=== PATIENT | female | born 1990 | race Caucasian/White ===

== ENCOUNTER 2019-08-22 10:04 | Day surgery (SDC) | payer MEDICAID ==
[~2019-08-22] VITALS: Ht 165.1 cm; Wt 65.4 kg
[~2019-08-22 10:04] MED LIST: CARCD120C PO; DOCUMENT DATE & TIME OF BETA-BLOCKER PO ONE; IBUP-24 PO; METO-539 PO; clindamycin-Cleocin 900mg/D5W 50 ML IV ONE; famotidine 20mg tablet PO ONE; ringers solution, lacted 1,000 ML IV SCH
[2019-08-22 10:20] VITALS: BP 112/65
[2019-08-22 11:42] LABS: BASOPHILS # (AUTO) 0.1 X10'3 (0-0.2); BASOPHILS % (AUTO) 1.2 % (0-1); EOSINOPHILS # (AUTO) 0.2 X10'3 (0-0.9); EOSINOPHILS % (AUTO) 4.7 % (0-6); LYMPHOCYTES # (AUTO) 1.1 X10'3 (1.1-4.8); LYMPHOCYTES % (AUTO) 24.7 % (21-51); MEAN CORPUSCULAR HEMOGLOBIN 31.1 PG (27.0-31.0); MEAN CORPUSCULAR HGB CONC 34.1 g/dL (33.0-36.5); MEAN CORPUSCULAR VOLUME 91.3 FL (78-98); MEAN PLATELET VOLUME 8.3 FL (7.4-10.4); MONOCYTES # (AUTO) 0.6 X10'3 (0-0.9); MONOCYTES % (AUTO) 13.4 % (2-12); NEUTROPHILS # (AUTO) 2.5 X10'3 (1.8-7.7); PRE OP HEMATOCRIT 42.9 % (35.0-45.0); PRE OP HEMOGLOBIN 14.6 g/dL (12.0-16.0); PRE OP PLATELET COUNT 290 X10'3 (140-440)
[2019-08-22 11:56] LABS: ALANINE AMINOTRANSFERASE 22 U/L (12-78); ALBUMIN 4.1 G/DL (3.4-5.0); ALBUMIN/GLOBULIN RATIO 1.2 (1.1-1.5); ALKALINE PHOSPHATASE 68 IU/L (46-116); ANION GAP 12 (8-16); ASPARTATE AMINO TRANSFERASE 13 U/L (10-37); BILIRUBIN,TOTAL 0.5 MG/DL (0.1-1.0); BLOOD UREA NITROGEN 13 MG/DL (7-18); BUN/CREATININE RATIO 18.1 (6.6-38.0); CALCIUM 8.6 MG/DL (8.5-10.1); CHLORIDE 103 MMOL/L (99-107); CREATININE 0.72 MG/DL (0.40-0.90); GLUCOSE 94 MG/DL (70-104); POTASSIUM 4.4 MMOL/L (3.5-5.1); SODIUM 140 MMOL/L (135-145); TOTAL CARBON DIOXIDE 25.4 MMOL/L (24-32); TOTAL PROTEIN 7.6 G/DL (6.4-8.2); eGFR > 90 ML/MIN
[2019-08-22] MEDS ORDERED: LIDOcaine 1% 30ml preserv. free vial ONE (12:03)
[2019-08-22] MEDS ORDERED: ceFAZolin 1000mg inj ONE (12:03)
[2019-08-22] MEDS ORDERED: propofol 10mg/ml 20ml vial IV ONE (13:00)
[2019-08-22] MEDS ORDERED: fentaNYL/PF 50MCG/1 ML 2ML syringe ONE (13:09)
[2019-08-22] MEDS ORDERED: midazolam 2 mg/2 ml injection ONE (13:11)
[2019-08-22] MEDS ORDERED: ringers solution, lacted 1,000 ML IV SCH (13:22)
[2019-08-22] MEDS ORDERED: morphine 4 MG/ML inj SYRINge IV PRN ×2 (13:25)
[2019-08-22] MEDS ORDERED: labetalol 20mg/4ml (5mg/ml) syringe IV PRN (13:25)
[2019-08-22] MEDS ORDERED: ondansetron/PF 4mg/2ml inj IV PRN (13:25)
[2019-08-22] MEDS ORDERED: fentaNYL/PF 50MCG/1 ML 2ML syringe IV PRN ×2 (13:25)
[2019-08-22] MEDS ORDERED: hydrALAZINE 20mg/ml inj. IV PRN (13:25)
[2019-08-22 13:35] VITALS: BP 121/63
[2019-08-22 13:45] VITALS: BP 107/70
[2019-08-22 13:55] VITALS: BP 111/69
[2019-08-22 14:05] VITALS: BP 122/69
[2019-08-22 14:15] VITALS: BP 100/58
--- NOTE | 2019-08-22 14:35 | NUR ---
ADMITTED TO PACU FROM OR ACCOMPANIED BY ANESTHESIA. INTIAL PHYSICAL ASSESSMENT DONE AND RECORDED. AWAKE AND RESPONSE ON ARRIVE YO PACU, REPORT RECEIVED FROM ANESTHESIA.
--- NOTE | 2019-08-22 14:35 | NUR ---
Discharge criteria met, discharge instructions given, demonstrates verbal understanding. Discharged home in good condition.
== END 2019-08-22 14:35 | disposition home or self-care (01) ==
LOC: PAS 10:04
PROVIDERS: ATTEND Surgery
DX: Z45.09 Encounter for adjustment and management of other cardiac device (principal); Z88.8 Allergy status to other drugs, medicaments and biological substances; Z91.040 Latex allergy status; Z88.1 Allergy status to other antibiotic agents; Z98.890 Other specified postprocedural states; Z79.899 Other long term (current) drug therapy
CPT/HCPCS: 33286; 36415; 80053; 85025; J0690; J2001; J2250; J2704; J3010; A4215; A6258; A7000; J3490; J7120

== ENCOUNTER 2020-06-23 17:25 | Emergency (ER) | payer MEDICAID ==
[~2020-06-23] VITALS: Ht 165.1 cm; Wt 62.0 kg
[~2020-06-23 17:25] MED LIST changes: -DOCUMENT DATE & TIME OF BETA-BLOCKER PO ONE; -clindamycin-Cleocin 900mg/D5W 50 ML IV ONE; -famotidine 20mg tablet PO ONE; -ringers solution, lacted 1,000 ML IV SCH
[2020-06-23 18:16] LABS: BASOPHILS # (AUTO) 0.1 X10'3 (0-0.2); BASOPHILS % (AUTO) 1.2 % (0-1); EOSINOPHILS # (AUTO) 0.1 X10'3 (0-0.9); EOSINOPHILS % (AUTO) 2.9 % (0-6); HEMATOCRIT 39.5 % (35.0-45.0); HEMOGLOBIN 13.5 g/dl (12.0-16.0); LYMPHOCYTES # (AUTO) 1.3 X10'3 (1.1-4.8); LYMPHOCYTES % (AUTO) 25.9 % (21-51); MEAN CORPUSCULAR HGB CONC 34.3 g/dL (33.0-36.5); MEAN CORPUSCULAR VOLUME 93.3 FL (78-98); MEAN PLATELET VOLUME 8.4 FL (7.4-10.4); MONOCYTES # (AUTO) 0.5 X10'3 (0-0.9); MONOCYTES % (AUTO) 9.9 % (2-12); NEUTROPHILS % (AUTO) 60.1 % (42-75); PLATELET COUNT 280 X10'3 (140-440); RED BLOOD COUNT 4.23 X10'6 (4.20-5.60); RED CELL DISTRIBUTION WIDTH 13.5 % (11.5-14.5)
[2020-06-23] MEDS ORDERED: AMIO200T61 PO (18:33)
[2020-06-23 18:47] LABS: ALANINE AMINOTRANSFERASE 18 U/L (12-78); ALBUMIN 3.7 G/DL (3.4-5.0); ALBUMIN/GLOBULIN RATIO 1.2 (1.1-1.5); ALKALINE PHOSPHATASE 52 IU/L (46-116); ANION GAP 4 (8-16); ASPARTATE AMINO TRANSFERASE 12 U/L (10-37); BILIRUBIN,TOTAL 0.5 MG/DL (0.1-1.0); BLOOD UREA NITROGEN 11 MG/DL (7-18); BUN/CREATININE RATIO 11.3 (6.6-38.0); CALCIUM 8.6 MG/DL (8.5-10.1); CHLORIDE 108 MMOL/L (99-107); CREATININE 0.97 MG/DL (0.40-0.90); GLUCOSE 101 MG/DL (70-104); POTASSIUM 3.9 MMOL/L (3.5-5.1); SODIUM 139 MMOL/L (135-145); TOTAL CARBON DIOXIDE 27.3 MMOL/L (24-32); TOTAL PROTEIN 6.9 G/DL (6.4-8.2); eGFR 67 ML/MIN
[2020-06-23] MEDS ORDERED: ketorolac tromethamine 15mg/ml inj. IV ONE (19:15)
[2020-06-23] MEDS ORDERED: ketorolac trometh. 30mg/ml inj. IM ONE (19:30)
[2020-06-23 20:52] VITALS: BP 124/99
== END 2020-06-23 20:54 | disposition home or self-care (01) ==
LOC: ER 17:26
DX: R07.89 Other chest pain (principal); R06.02 Shortness of breath; Z88.8 Allergy status to other drugs, medicaments and biological substances; Z88.1 Allergy status to other antibiotic agents; Z91.040 Latex allergy status; Z79.899 Other long term (current) drug therapy
CPT/HCPCS: 36415; 71046; 80053; 83880; 84484; 85025; 93005; 96372; 99285; J1885

== ENCOUNTER 2021-07-15 09:52 | Inpatient (IN) | payer MEDICAID ==
[2021-07-09 15:46] LABS: BASOPHILS # (AUTO) 0.1 X10'3 (0-0.2); EOSINOPHILS # (AUTO) 0.1 X10'3 (0-0.9); EOSINOPHILS % (AUTO) 2.2 % (0-6); LYMPHOCYTES # (AUTO) 1.4 X10'3 (1.1-4.8); LYMPHOCYTES % (AUTO) 25.9 % (21-51); MEAN CORPUSCULAR HEMOGLOBIN 31.2 PG (27.0-31.0); MEAN CORPUSCULAR HGB CONC 33.3 g/dL (33.0-36.5); MEAN CORPUSCULAR VOLUME 93.6 FL (78-98); MEAN PLATELET VOLUME 8.8 FL (7.4-10.4); MONOCYTES # (AUTO) 0.7 X10'3 (0-0.9); MONOCYTES % (AUTO) 12.2 % (2-12); NEUTROPHILS # (AUTO) 3.2 X10'3 (1.8-7.7); NEUTROPHILS % (AUTO) 58.7 % (42-75); PRE OP HEMATOCRIT 42.7 % (35.0-45.0); PRE OP HEMOGLOBIN 14.2 g/dL (12.0-16.0); PRE OP PLATELET COUNT 292 X10'3 (140-440); RED BLOOD COUNT 4.56 X10'6 (4.20-5.60); RED CELL DISTRIBUTION WIDTH 13.4 % (11.5-14.5)
[2021-07-09 16:13] LABS: ALBUMIN 4.2 G/DL (3.4-5.0); ALBUMIN/GLOBULIN RATIO 1.3 (1.1-1.5); ALKALINE PHOSPHATASE 65 IU/L (46-116); BLOOD UREA NITROGEN 14 MG/DL (7-18); BUN/CREATININE RATIO 14.9 (6.6-38.0); CHLORIDE 108 MMOL/L (99-107); CREATININE 0.94 MG/DL (0.40-0.90); PRE OP ALT 26 U/L (30-65); PRE OP ANION GAP 11 (8-16); PRE OP AST 19 U/L (10-37); PRE OP BILIRUB, TOTAL 0.3 MG/DL (0.0-1.0); PRE OP GLUCOSE 83 MG/DL (70-104); PRE OP POTASSIUM 4.2 MMOL/L (3.4-5.1); PRE OP SODIUM 145 MMOL/L (135-145); TOTAL CARBON DIOXIDE 26.2 MMOL/L (24-32); TOTAL PROTEIN 7.5 G/DL (6.4-8.2); eGFR 69 ML/MIN
[2021-07-15] VITALS (13 sets, daily range): BP systolic 99–127; BP diastolic 55–80
[~2021-07-15] VITALS: Ht 165.1 cm; Wt 67.1 kg
[~2021-07-15 09:52] MED LIST changes: +AMIO200T61 PO; -CARCD120C PO; +DOCUMENT DATE & TIME OF BETA-BLOCKER PO ONE; +FLUD0.1T PO; +MESSAGE TO NURSING IV ONE; +VANCOMYCIN INJ 1000 MG in NORMAL SALINE 250ml IV.SOLN IV ONE; +famotidine 20mg tablet PO ONE; +ringers solution, lacted 1,000 ML IV SCH; +tranexamic acid 650mg tablet PO ONE
[2021-07-15] MEDS ORDERED: CLINDAmcin 900mg/NS 50ml IVPB 50 ML IV ONE (10:45)
[2021-07-15] MEDS ORDERED: diphenhydrAMINE 50 mg/ml inj IV ONE (12:00)
--- NOTE | 2021-07-15 12:00 | NUR ---
PT REPORTS HEAD IS ITCHY AND HEAD IS RED WITH NO WELTS. VANCOMYCIN STOPPED, DR BURCIAGA CALLED, TELEPHONE ORDER GIVEN FOR 25MG BENADRYL IV PUSH, ONE TIME.
[2021-07-15] MEDS ORDERED: ROPIVAcaine 0.5% (5mg/ml) 30ml vial ONE (13:33)
[2021-07-15] MEDS ORDERED: ketorolac trometh. 30mg/ml inj. ONE (13:33)
[2021-07-15] MEDS ORDERED: fentaNYL/PF 50MCG/1 ML 2ML syringe ONE (13:45)
[2021-07-15] MEDS ORDERED: propofol inj 20 ML IV ONE (13:45)
[2021-07-15] MEDS ORDERED: midazolam 1 mg/ML 2ml injection ONE ×2 (13:45)
[2021-07-15] MEDS ORDERED: meperidine/PF 25mg/ml syringe IV PRN ×3 (13:50)
[2021-07-15] MEDS ORDERED: ROPIVAcaine 0.2%/PF PUMP/bolus 545 ML INTERSCALE SCH (13:50)
[2021-07-15] MEDS ORDERED: morphine 4 MG/ML inj SYRINge IV PRN (13:50)
[2021-07-15] MEDS ORDERED: ROPIVAcaine 0.2% (10 MG/5 ML) BOLUS INJECTION INTERSCALE PRN (13:50)
[2021-07-15] MEDS ORDERED: ondansetron/PF 4mg/2ml inj IV PRN (13:50)
[2021-07-15] MEDS ORDERED: proCHLORperazine 10 MG/2 ml inj IV PRN (13:50)
[2021-07-15] MEDS ORDERED: ringers solution, lacted 1,000 ML IV SCH (13:50)
[2021-07-15] MEDS ORDERED: morphine 2 MG/ML inj. syringe IV PRN (13:50)
--- NOTE | 2021-07-15 16:08 | NUR ---
ASSUME CARE PT AROUSABLE VSS NO DISTRESS RR AT EASE, LEFT SHOULDER IN SLING WITH ICE TO THE SITE. DRESSING CDI, +CMS TO LEFT HAND ARM. IV TO TO RIGHT ARM PATIENT IV FLUIDS INFUSING WITHOUT DIFF. CONT TO MONTIOR. Addendum: 07/15/21 at 1638 by Stacia Wade RN Amended: Links added.
[2021-07-15] MEDS ORDERED: acetaminophen 325mg tablet PO PRN (16:20)
[2021-07-15] MEDS: potassium cl 20mEq in 1/2 NS 1,000 ML IV SCH ×2 (16:20→21:45)
[2021-07-15] MEDS ORDERED: magnesium hydroxide 30ml (MOM) UD suspension PO PRN (16:20)
[2021-07-15] MEDS ORDERED: HYDROmorphone inj. 0.5 MG/0.5 ML DISP.SYRIN IV PRN (16:20)
[2021-07-15] MEDS ORDERED: diphenhydrAMINE 25mg capsule PO PRN ×2 (16:20)
[2021-07-15] MEDS ORDERED: oxyCODONE IR 5mg (immed. release) tablet PO PRN (16:20)
[2021-07-15] MEDS ORDERED: bisacodyl 10mg suppository rectal RC PRN (16:20)
[2021-07-15] MEDS ORDERED: HYDROmorphone 1 mg/ml syringe IV PRN (16:20)
--- NOTE | 2021-07-15 16:38 | NUR ---
PT MORE AWAKE ALERT ON RA HOB UP DWIGHT PO'S DENIES PAIN MEETS CRITERIA TO DC TO ROOM REPORT CALLED. Addendum: 07/15/21 at 1638 by Stacia Wade RN Amended: Links added.
[2021-07-15] MEDS: ondansetron/PF 4mg/2ml inj IV PRN (17:34)
--- NOTE | 2021-07-15 18:30 | NUR ---
Patient in room ORTH[facility] 4017. I have received report from JOANA LAYTON and had the opportunity to ask questions and assume patient care.
[2021-07-15] MEDS ORDERED: vancomycin/NS 1 GM ADD-VANTAGE 250 ML IV SCH (20:00)
[2021-07-15] MEDS: clindamycin 600mg/D5W 50ml 50 ML IV SCH (20:17)
[2021-07-15] MEDS: gabapentin 300mg capsule PO SCH (20:25)
[2021-07-15] MEDS: acetaminophen 325mg tablet PO SCH (20:26)
[2021-07-15] MEDS: ibuprofen 200mg tablet PO SCH (21:00)
[2021-07-15] MEDS ORDERED: amiodarone 200mg tablet PO SCH (21:00)
[2021-07-15] MEDS ORDERED: sennosides 8.6mg tablet PO SCH (21:00)
[2021-07-16] VITALS: BP 103/54
[2021-07-16] MEDS: oxyCODONE IR 5mg (immed. release) tablet PO PRN ×2 (00:47→05:15)
[2021-07-16] MEDS: ondansetron/PF 4mg/2ml inj IV PRN ×2 (01:00→06:45)
[2021-07-16] MEDS: clindamycin 600mg/D5W 50ml 50 ML IV SCH (02:42)
[2021-07-16] MEDS: acetaminophen 325mg tablet PO SCH ×2 (02:47→08:56)
[2021-07-16 06:30] VITALS: BP 101/52
--- NOTE | 2021-07-16 06:30 | NUR ---
Patient in room ORTHO 4017. I have received report from riddhi hannon rn and had the opportunity to ask questions and assume patient care.
--- NOTE | 2021-07-16 06:30 | NUR ---
Problems reprioritized. Patient report given, questions answered & plan of care reviewed with BRYAN LAYTON.
[2021-07-16 06:45] LABS: BASOPHILS % (AUTO) 0.5 % (0-1); EOSINOPHILS % (AUTO) 0.2 % (0-6); HEMATOCRIT 39.1 % (35.0-45.0); LYMPHOCYTES # (AUTO) 0.6 X10'3 (1.1-4.8); LYMPHOCYTES % (AUTO) 7.4 % (21-51); MEAN CORPUSCULAR HEMOGLOBIN 31.3 PG (27.0-31.0); MEAN CORPUSCULAR HGB CONC 33.4 g/dL (33.0-36.5); MEAN CORPUSCULAR VOLUME 93.7 FL (78-98); MEAN PLATELET VOLUME 8.6 FL (7.4-10.4); MONOCYTES # (AUTO) 0.6 X10'3 (0-0.9); MONOCYTES % (AUTO) 7.7 % (2-12); NEUTROPHILS # (AUTO) 6.6 X10'3 (1.8-7.7); NEUTROPHILS % (AUTO) 84.2 % (42-75); PLATELET COUNT 298 X10'3 (140-440); RED BLOOD COUNT 4.17 X10'6 (4.20-5.60); RED CELL DISTRIBUTION WIDTH 13.3 % (11.5-14.5); WHITE BLOOD COUNT 7.9 X10'3 (4.5-11.0)
[2021-07-16 07:17] LABS: ANION GAP 11 (8-16); CHLORIDE 107 MMOL/L (99-107); POTASSIUM 4.4 MMOL/L (3.5-5.1); SODIUM 141 MMOL/L (135-145); TOTAL CARBON DIOXIDE 22.8 MMOL/L (24-32)
[2021-07-16] MEDS ORDERED: metoprolol succinate 25mg (24-HOUR) SR. Tablet PO SCH (08:00)
[2021-07-16] MEDS ORDERED: fludrocortisone acetate 0.1mg tablet PO SCH (08:00)
[2021-07-16] MEDS: potassium cl 20mEq in 1/2 NS 1,000 ML IV SCH (08:20)
[2021-07-16] MEDS ORDERED: aspirin 325mg tablet PO SCH (08:30)
[2021-07-16] MEDS: gabapentin 300mg capsule PO SCH (08:55)
[2021-07-16] MEDS: ibuprofen 200mg tablet PO SCH (08:55)
[2021-07-16] MEDS ORDERED: HYDROcodone/acetaminophen 10/325mg tab PO PRN (09:30)
--- NOTE | 2021-07-16 09:31 | NUR ---
Joint surgery consult: Pt s/p L shoulder surgery this admit. Pt seen by ABHIJEET for written/verbal high protein ed w/ ABHIJEET contact information provided. Addendum: 07/16/21 at [address] Amended: Links added.
[2021-07-16] MEDS ORDERED: ASPI-1 PO (12:31)
[2021-07-16 12:39] VITALS: BP 114/77
[2021-07-16] MEDS ORDERED: ONDA4TAB6 PO (13:14)
--- NOTE | 2021-07-16 14:30 | NUR ---
PT DISCHARGED IN STABLE CONDITION. LEFT FACILITY IN PRIVATE VEHICLE WITH FRIEND. IV DC CANULA INTACT. ALL BELONGINGS IN HAND. FOLLOW UP INSTRUCTIONS GIVEN, ALL QUESTIONS ANSWERED. Addendum: 07/16/21 at 1505 by Kasey Houston RN Amended: Links added.
[2021-07-16] MEDS ORDERED: celeCOXIB 100mg capsule PO SCH (20:00)
[2021-07-17] MEDS ORDERED: HYDR-3973 PO (11:48)
[2021-07-17] MEDS ORDERED: acetaminophen 325mg tablet PO PRN (16:20)
== END 2021-07-16 14:30 | disposition home or self-care (01) | DRG 322 ==
LOC: UNDOADMIN 09:52 → PAS IN 09:52 → EDSTATUS 13:15 → PAS IN 16:21 → ORTHO 4S 16:50 → PAS IN 16:50
PROVIDERS: ADMIT Orthopaedic Surgery; ATTEND Orthopaedic Surgery
PROC: 0LS40ZZ Reposition Left Upper Arm Tendon, Open Approach (ICD-10-PCS; 2021-07-15)
PROC: 3E0T3BZ Introduction of Anesthetic Agent into Peripheral Nerves and Plexi, Percutaneous Approach (ICD-10-PCS; 2021-07-15)
PROC: 0RPK04Z Removal of Internal Fixation Device from Left Shoulder Joint, Open Approach (ICD-10-PCS; 2021-07-15)
PROC: 0RRK0JZ Replacement of Left Shoulder Joint with Synthetic Substitute, Open Approach (ICD-10-PCS; principal; 2021-07-15 13:47)
DX: M19.012 Primary osteoarthritis, left shoulder (principal); M65.812 Other synovitis and tenosynovitis, left shoulder; M75.22 Bicipital tendinitis, left shoulder; T85.848A Pain due to other internal prosthetic devices, implants and grafts, initial encounter; Y79.3 Surgical instruments, materials and orthopedic devices (including sutures) associated with adverse incidents; R11.0 Nausea; Y92.89 Other specified places as the place of occurrence of the external cause; Z79.899 Other long term (current) drug therapy
CPT/HCPCS: 36415; 80051; 80053; 82948; 85025; 87081; 97116; 97161; 97530; G0378; J1200; J1885; J2250; J2405; J2704; J2795; J3010; J3370; J3480; J3490; J7120; U0003; U0005

== ENCOUNTER 2022-04-12 09:57 | Emergency (ER) | payer MEDICAID ==
[~2022-04-12] VITALS: Ht 165.1 cm; Wt 59.1 kg
[~2022-04-12 09:57] MED LIST changes: +ASPI-1 PO; -DOCUMENT DATE & TIME OF BETA-BLOCKER PO ONE; -MESSAGE TO NURSING IV ONE; +ONDA4TAB6 PO; -VANCOMYCIN INJ 1000 MG in NORMAL SALINE 250ml IV.SOLN IV ONE; -famotidine 20mg tablet PO ONE; -ringers solution, lacted 1,000 ML IV SCH; -tranexamic acid 650mg tablet PO ONE
[2022-04-12 10:22] VITALS: BP 123/85
[2022-04-12] MEDS ORDERED: ALBU8HFA PO (11:18)
[2022-04-12] MEDS ORDERED: BENZ-38 PO (11:18)
--- NOTE | 2022-04-12 11:30 | NUR ---
covid and flu swab sent to lab
== END 2022-04-12 11:50 | disposition home or self-care (01) ==
LOC: ER 10:01
DX: R06.02 Shortness of breath (principal); Z20.822 Contact with and (suspected) exposure to COVID-19; R05.9 Cough, unspecified; R07.89 Other chest pain; R51.9 Headache, unspecified; I48.91 Unspecified atrial fibrillation; Z79.2 Long term (current) use of antibiotics; Z88.8 Allergy status to other drugs, medicaments and biological substances; Z91.040 Latex allergy status; Z88.1 Allergy status to other antibiotic agents; Z79.82 Long term (current) use of aspirin; Z79.899 Other long term (current) drug therapy
CPT/HCPCS: 71045; 99283

== ENCOUNTER 2023-02-16 17:23 | Emergency (ER) | payer MEDICAID ==
[~2023-02-16] VITALS: Ht 165.1 cm; Wt 70.5 kg
[2023-02-16 17:31] VITALS: BP 113/70
[2023-02-16] MEDS ORDERED: ondansetron 4mg rapidly disintigrating tab PO ONE (18:55)
[2023-02-16] MEDS ORDERED: HYDROcodone/acetaminophen 5mg/325mg tablet PO ONE (18:55)
[2023-02-16] MEDS ORDERED: acetaminophen 325mg tablet PO ONE (19:35)
[2023-02-16] MEDS ORDERED: IBUP-1984 PO (19:52)
== END 2023-02-16 20:43 | disposition home or self-care (01) ==
LOC: ER 17:24
DX: S63.501A Unspecified sprain of right wrist, initial encounter (principal); I50.9 Heart failure, unspecified; Z88.1 Allergy status to other antibiotic agents; Z88.8 Allergy status to other drugs, medicaments and biological substances; Z91.040 Latex allergy status; Z79.899 Other long term (current) drug therapy; W19.XXXA Unspecified fall, initial encounter; Y93.89 Activity, other specified; Y92.89 Other specified places as the place of occurrence of the external cause; Y99.8 Other external cause status
CPT/HCPCS: 29125; 73110; 99284